=== PATIENT | female | born 1955 | race Caucasian/White ===

== ENCOUNTER → 2021-11-07 12:11 | Outpatient (CLI) | payer MEDICARE, SELFPAY ==
[2021-11-07 19:15] LABS: Add Manual Diff / Slide Review NO; Basophils Absolute Auto 0 /uL (0-100); Basophils Percent Auto 0.8 % (0-2); Eosinophils Absolute Auto 200 /uL (0-450); Eosinophils Percent Auto 4.2 % (2-4); Hematocrit 37.3 % (36-46); Hemoglobin 13.1 g/dL (12.0-16.0); Lymphocytes Absolute Auto 1500 /uL (1100-4500); Lymphocytes Percent Auto 41.1 % (25-40); Mean Corpuscular Hemoglobin 30.5 PG (26-34); Mean Corpuscular Volume 87.2 fL (80-100); Monocytes Absolute Auto 300 /uL (0-900); Monocytes Percent Auto 7.5 % (3-14); Neutrophils Absolute Auto 1700 /uL (1500-7000); Neutrophils Percent Auto 46.4 % (50-75); Platelet Count 210 X10^3/uL (150-400); Red Blood Cell Count 4.28 X10^6/uL (4.0-5.2); White Blood Cell Count 3.7 X10^3/uL (4.5-11.0)
[2021-11-07 19:25] LABS: Alanine Aminotransferase 29 IU/L (<35); Albumin 3.8 g/dL (3.5-5.0); Albumin Globulin Ratio 1.2 (1.0-2.8); Alkaline Phosphatase 61 U/L (38-126); Aspartate Aminotransferase 28 IU/L (14-36); Bilirubin Total 0.6 mg/dL (0.2-1.3); Blood Urea Nitrogen 12 mg/dL (7-17); Calcium 8.9 mg/dL (8.4-10.2); Carbon Dioxide 28 mmol/L (22-32); Chloride 106 mmol/L (98-107); Estimated Glomerular Filt Rate > 60 mL/min (>60); Globulin 3.2 g/dL (1.7-4.1); Glucose 107 mg/dL (80-110); HEMOLYSIS < 15 (0-50); Potassium 4.4 mmol/L (3.4-5.1); Sodium 140 mmol/L (137-145)
[2021-11-07 19:26] LABS: Cholesterol 200 mg/dL (140-199); HDL Cholesterol 65 mg/dL (40-60); LDL Cholesterol Calculated 111 mg/dL (<100); Triglycerides 122 mg/dL (35-150)
[2021-11-07 19:51] LABS: TSH w/ Reflex to FT4 2.39 uIU/mL (0.47-4.68)
[2021-11-07 20:13] LABS: Hep C Virus Ab w/Reflex Quant NEGATIVE s/c (NEGATIVE)
== END ==
PROVIDERS: PCP Physician Assistant; Visit Provider Physician Assistant
DX: R03.0 Elevated blood-pressure reading, without diagnosis of hypertension (principal); Z13.220 Encounter for screening for lipoid disorders; Z11.59 Encounter for screening for other viral diseases
CPT/HCPCS: 80053; 80061; 84443; 85025; 86803

== ENCOUNTER → 2022-08-22 | Outpatient (CLI) | payer MEDICARE, MEDICAID, SELFPAY | PROVIDERS: PCP Family Medicine; Visit Provider Nurse Practitioner Adult Health ==

== ENCOUNTER → 2022-09-05 09:14 | Outpatient (CLI) | payer MEDICARE, MEDICAID, SELFPAY | PROVIDERS: PCP Family Medicine; Visit Provider Family Medicine | DX: M54.9 Dorsalgia, unspecified (principal); R39.89 Other symptoms and signs involving the genitourinary system | CPT/HCPCS: 87086 ==

== ENCOUNTER → 2023-01-15 09:02 | Outpatient (CLI) | payer MEDICARE, SELFPAY ==
[2023-01-15 19:45] LABS: Alanine Aminotransferase 37 IU/L (<35); Albumin 4.1 g/dL (3.5-5.0); Albumin Globulin Ratio 1.1 (1.0-2.8); Alkaline Phosphatase 68 U/L (38-126); Aspartate Aminotransferase 34 IU/L (14-36); BUN Creatinine Ratio 20.3 (6-22); Bilirubin Total 0.6 mg/dL (0.2-1.3); Blood Urea Nitrogen 14 mg/dL (7-17); Calcium 9.5 mg/dL (8.4-10.2); Carbon Dioxide 30 mmol/L (22-32); Chloride 104 mmol/L (98-107); Cholesterol 246 mg/dL (140-199); Estimated Glomerular Filt Rate > 60 mL/min (>60); Globulin 3.8 g/dL (1.7-4.1); Glucose 97 mg/dL (80-110); HDL Cholesterol 76 mg/dL (40-60); HEMOLYSIS < 15 (0-50); LDL Cholesterol Calculated 142 mg/dL (<100); Potassium 4.4 mmol/L (3.4-5.1); Sodium 139 mmol/L (137-145); Total Protein 7.9 g/dL (6.3-8.2); Triglycerides 139 mg/dL (35-150)
[2023-01-15 19:56] LABS: Hemoglobin 14.6 g/dL (12.0-16.0); Mean Corpuscular HGB Conc 34.7 % (30-36); Mean Corpuscular Hemoglobin 30.8 PG (26-34); Mean Corpuscular Volume 88.8 fL (80-100); Platelet Count 243 X10^3/uL (150-400); Red Blood Cell Count 4.73 X10^6/uL (4.0-5.2); Red Cell Distribution Width 13.1 % (11.6-14.8); White Blood Cell Count 5.2 X10^3/uL (4.5-11.0)
[2023-01-15 20:15] LABS: TSH w/ Reflex to FT4 2.72 uIU/mL (0.47-4.68)
[2023-01-15 20:25] LABS: Add Manual Diff / Slide Review YES
[2023-01-15 20:37] LABS: Neutrophils Absolute Manual 2132 /uL (3000-5900); RBC Morphology Normal Morphology; Total Cells Counted 100
== END ==
PROVIDERS: PCP Family Medicine; Visit Provider Family Medicine
DX: R03.0 Elevated blood-pressure reading, without diagnosis of hypertension (principal); E66.9 Obesity, unspecified; I10 Essential (primary) hypertension
CPT/HCPCS: 80053; 80061; 84443; 85007; 85025

== ENCOUNTER → 2023-05-02 10:48 | Outpatient (CLI) | payer MEDICARE, SELFPAY ==
[2023-05-02 19:32] LABS: Alanine Aminotransferase 31 IU/L (<35); Alkaline Phosphatase 63 U/L (38-126); Aspartate Aminotransferase 29 IU/L (14-36); BUN Creatinine Ratio 15.3 (6-22); Bilirubin Total 0.6 mg/dL (0.2-1.3); Blood Urea Nitrogen 9 mg/dL (7-17); Calcium 9.6 mg/dL (8.4-10.2); Carbon Dioxide 29 mmol/L (22-32); Chloride 103 mmol/L (98-107); Estimated Glomerular Filt Rate > 60 mL/min (>60); Glucose 94 mg/dL (80-110); HEMOLYSIS < 15 (0-50); Potassium 4.3 mmol/L (3.4-5.1); Sodium 138 mmol/L (137-145); Total Protein 7.3 g/dL (6.3-8.2)
[2023-05-02 20:31] LABS: Albumin 3.9 g/dL (3.5-5.0); Albumin Globulin Ratio 1.1 (1.0-2.8); Globulin 3.4 g/dL (1.7-4.1)
[2023-05-04 08:44] LABS: HBsAg Screen Negative (Negative); Hepatitis A Antibody IgM Negative (Negative); Hepatitis B Core Antibody IgM Negative (Negative); Hepatitis C Antibody Non Reactive (Non Reactive)
== END ==
PROVIDERS: PCP Family Medicine; Visit Provider Family Medicine
DX: R74.01 Elevation of levels of liver transaminase levels (principal); R79.89 Other specified abnormal findings of blood chemistry
CPT/HCPCS: 80053; 80074

== ENCOUNTER 2023-05-21 14:07 | Inpatient (IN) | payer MEDICARE, SELFPAY ==
[2023-05-21 14:14] VITALS: BP 208/84; PULSE 87; RESP 16; TEMP 35.8; O2SAT 100; BMI 37.4
--- NOTE | 2023-05-21 14:29 | DI.US.S_ITS ---
PROCEDURE: US ABDOMEN COMPLETE INDICATIONS: generalized abd pain TECHNIQUE: Real-time scanning was performed of the abdominal and retroperitoneal organs, with image documentation. COMPARISON: None. FINDINGS: Liver: Liver is normal in size and homogeneous in echotexture. Gallbladder: Nondilated. Multiple stones. Nonmobile gallstone at the neck measuring at 0.9 cm. Calcifications at the gallbladder wall. Gallbladder wall thickening measuring 8 mm. No pericholecystic fluid. Negative sonographic Blancas's sign. Biliary ducts: Intrahepatic bile ducts are non-dilated. Extrahepatic bile duct caliber measures 6 mm. Normal is 6-7 mm or less in diameter, or 10 mm or less post-cholecystectomy. Pancreas: Visualized portions of the pancreas are sonographically normal. Spleen: Measures 13.6 cm in length. Kidneys: Kidneys are normal in size and echotexture. Right kidney measures 11.6 cm long; left kidney measures 10 cm long. No hydronephrosis or nephrolithiasis. No solid masses. Aorta: Visualized aorta is normal in caliber at less than 3 cm. Iliacs: Proximal common iliac arteries are normal in caliber at less than 2.5 cm. IVC: Intrahepatic inferior vena cava is patent. Miscellaneous: No free abdominal fluid. IMPRESSION: 1. Gallbladder wall thickening. Multiple gallstones. Findings could be seen in cholecystitis. Recommend clinical correlation. HIDA scan may be helpful for further evaluation. 2. Spleen is mildly enlarged. 3. No hydronephrosis. Dictated by: Antelmo Ontiveros M.D. on 05/21/2023 at 17:00 Approved by: Antelmo Ontiveros M.D. on 05/21/2023 at 17:06
--- NOTE | 2023-05-21 14:34 | ED_ITS ---
HPI - Abdominal Pain General Chief Complaint: Abdominal Pain Stated Complaint: per pt sent by pcplj Time Seen by Provider: 05/21/23 14:33 Source: patient Mode of arrival: Family Vehicle Limitations: no limitations History of Present Illness HPI narrative: 68-year-old reports no daily medications no prior surgeries patient states earlier in the day she was waiting for the [place] they had [employer] fast food and about an hour afterwards had generalized abdominal pain all over. She was seen by her primary care who states she would a lot of right upper quadrant pain that is and heard for evaluation for cholelithiasis versus cystitis. Patient states pain is actually resolving at this point she feels much better. She describes it as all over. Patient states no fevers or chills. No chest pain or shortness of breath. No nausea or vomiting. No diarrhea constipation, no other urinary symptoms. Patient states she has not had these issues in the past. She did feel like she was having some reflux. Patient states occasional tobacco, occasional alcohol but not regularly, marijuana but no other recreational drugs. Lives on [facility]. Related Data Previous Rx's Medication Instructions Recorded betamethasone, augmented 0.05 % 1 applic topical BID #50 grams 11/14/22 topical gel estradiol 0.01% (0.1 mg/gram) See Rx Instructions vaginal QWEEK 01/30/23 vaginal cream (Estrace) #42.5 grams Allergies Allergy/AdvReac Type Severity Reaction Status Date / Time No Known Drug Allergies Allergy Verified 05/21/23 14:23 Review of Systems Review of Systems ROS Unobtainable: All systems reviewed & are unremarkable except as noted in HPI and below Patient History Medical History Lichen sclerosus et atrophicus Vulvovaginal disease Vulvar atrophy Screening for malignant neoplasm of cervix Closed displaced fracture of styloid process of right radius with delayed healing Elevated blood pressure reading without diagnosis of hypertension Social History Smoking Status: Current some day smoker Smoking Status: Current some day smoker tobacco type: cigarettes Substance Use Type: marijuana Exam Narrative Exam Narrative: GENERAL: Alert and oriented x three, obese female in mild distress. HEENT: Head normocephalic, atraumatic, EOMI, pupils reactive, face symmetric, moist mucous membranes NECK: Supple, full range of motion CARDIOVASCULAR: Regular rate and rhythm without murmurs, rubs or gallops. RESPIRATORY: Breath sounds equal bilaterally, no wheezes rales or rhonchi. ABDOMEN: Soft, patient has some mild left upper quadrant tenderness mild right upper but left greater than right. Nondistended. Normoactive bowel sounds all 4 quadrants. No guarding or rebound, rigidity, no mass : No CVA tenderness EXTREMITIES: Normal range of motion, no clubbing or edema. Neurovascularly intact NEUROLOGICAL: Cranial nerves II through XII grossly intact. Moving all extremities SKIN: Warm, dry, no petechiae, no rashes or lesions. Initial Vital Signs Initial Vital Signs: Vital Signs Temperature 96.5 F L 05/21/23 14:14 Pulse Rate 87 05/21/23 14:14 Respiratory Rate 16 05/21/23 14:14 Blood Pressure 208/84 H 05/21/23 14:14 Pulse Oximetry 100 05/21/23 14:14 Oxygen Delivery Method Room Air 05/21/23 14:14 Course Orders Ordered: ED Orders 05/21/23 14:29 US abdomen complete Stat 05/21/23 14:46 Complete Blood Count AUTO DIFF Stat Comprehensive Metabolic Panel Stat Lipase Stat 05/21/23 16:33 MRCP [MR abdomen wo/w con] Stat 05/21/23 19:15 UA dip and micro [Urinalysis and Microscopic] Stat Ondansetron HCl (Ondansetron 4 Mg Odt) 4 mg PO NOW PRN PRN Reason: Nausea And Vomiting Ondansetron HCl (Ondansetron 4 Mg/2 Ml Inj) 4 mg IV NOW PRN PRN Reason: Nausea And Vomiting Discontinued Medications Piperacillin Sod/Tazobactam (Sod 4.5 gm/ Sodium Chloride) 100 mls @ 200 mls/hr IV NOW ONE Stop: 05/21/23 16:34 Last Infusion: 05/21/23 17:41 Dose: Infused Documented By: Admin: 05/21/23 16:53 Dose: 200 mls/hr Documented By: AMV Pantoprazole Sodium (Pantoprazole 40 Mg Vial) 40 mg IV NOW ONE Stop: 05/21/23 14:30 Last Admin: 05/21/23 15:54 Dose: 40 mg Documented By: RL Vital Signs Vital signs: Vital Signs - 8 hr 05/21/23 14:14 05/21/23 16:40 Temperature 96.5 F L Pulse Rate 87 79 Respiratory Rate 16 16 Blood Pressure 208/84 H 126/81 Pulse Oximetry 100 98 Oxygen Delivery Method Room Air Room Air MDM - Abdominal Pain Lab Data 05/21/23 14:46 05/21/23 14:46 Labs: Lab Results 05/21/23 Range/Units 14:46 WBC 7.5 (4.5-11.0) X10^3/uL RBC 4.55 (4.0-5.2) X10^6/uL Hgb 13.6 (12.0-16.0) g/dL Hct 39.8 (36-46) % MCV 87.4 (80-100) fL MCH 30.0 (26-34) PG MCHC 34.3 (30-36) % RDW 13.5 (11.6-14.8) % Plt Count 235 (150-400) X10^3/uL Neut % (Auto) 72.8 (50-75) % Lymph % (Auto) 17.2 L (25-40) % [place] % (Auto) 8.0 (3-14) % Eos % (Auto) 1.5 L (2-4) % Baso % (Auto) 0.5 (0-2) % Neut # (Auto) 5400 (2400-0104) /uL Lymph # (Auto) 1300 (0552-3257) /uL [place] # (Auto) 600 (0-900) /uL Eos # (Auto) 100 (0-450) /uL Baso # (Auto) 0 (0-100) /uL Sodium 135 L (137-145) mmol/L Potassium 4.2 (3.4-5.1) mmol/L Chloride 102 (98-107) mmol/L Carbon Dioxide 26 (22-32) mmol/L BUN 8 (7-17) mg/dL Creatinine 0.55 (0.52-1.04) mg/dL Estimated GFR > 60 (>60) mL/min BUN/Creatinine Ratio 14.5 (6-22) Glucose 104 (80-110) mg/dL Calcium 10.3 H (8.4-10.2) mg/dL Total Bilirubin 2.0 H (0.2-1.3) mg/dL AST 238 H (14-36) IU/L ALT 670 H (<35) IU/L Alkaline Phosphatase 311 H (38-126) U/L Total Protein 8.4 H (6.3-8.2) g/dL Albumin 4.2 (3.5-5.0) g/dL Globulin 4.2 H (1.7-4.1) g/dL Albumin/Globulin Ratio 1.0 (1.0-2.8) Lipase 1515 H (23-300) U/L Imaging Data MCRP: Radiologist's Impression: [address] [address] Magnetic Resonance Report Signed Patient: Batsheva Rebolledo MR#: [id number] : 1955 Acct:[id number] Age/Sex: 68 / F Date of Service: 05/21/23 Loc: ED Accession Number: [id number] Procedure: MR abdomen wo/w con Ordering Provider: Anna Meadows D.O. PROCEDURE: MR AB PANCREATIC/MRCP PROTOCOL INDICATIONS: r/o choledocolithiasis. Right upper quadrant pain following fast food ingestion, which has not resolved. TECHNIQUE: Coronal HASTE through the abdomen, axial 2-D FLASH in- and [id number], and breath-hold T2 FSE with fat saturation through the biliary system and pancreas. Oblique coronal and axial thin-slice HASTE, radial thick-slab HASTE centered on the extrahepatic bile ducts. Intravenous secretin: Not requested. COMPARISON: None. FINDINGS: Image quality: Excellent. Liver: No solid mass. Gallbladder and biliary tree: Gallbladder is contracted. Gallstones are present. Focal adenomyomatosis at the gallbladder fundus. No hydrops. Trace pericholecystic edema. Spleen: Normal size. Pancreas: No ductal dilation. Adrenal glands: 2.2 cm right adrenal nodule with signal dropout on the out of phase sequence, consistent with a benign adrenal adenoma. Kidneys: No hydronephrosis. No solid mass. No complex renal cysts which requires follow-up. Nodes and vessels: No retroperitoneal or mesenteric adenopathy by size criteria. Aorta and inferior vena cava are normal in size. Bowel and peritoneum: Unenhanced bowel loops are normal in caliber. No free fluid. Lung bases: No basal pleural effusions. Heart size is normal. Bones and soft tissues: No ventral hernias. Bone marrow is of normal overall signal. IMPRESSION: Cholelithiasis. Gallbladder is contracted, but trace pericholecystic edema is present. In the presence of right upper quadrant pain, findings are concerning for acute cholecystitis. No evidence of choledocholithiasis. Benign right adrenal. Dictated by: Brandt Dixon M.D. on 05/21/2023 at 17:54 Approved by: Brandt Dixon M.D. on 05/21/2023 at 17:57 [facility] Narrative Medical decision making narrative: 68-year-old female with complaint of abdominal pain that started approximately an hour after ingesting fast food it has since started to improve and resolve. Patient is hypertensive but otherwise fairly appropriate vitals. She has a benign abdominal exam. Plan for labs, urine, abdominal ultrasound. Awaiting patient's ultrasound report prelim was that the wall was thickened at 7 mm stone in the fundus with adenomyomatosis but has not been read at almost 2 hours. Patient's bilirubin is elevated at 2 AST ALT alk phos are all elevated and lipase is [address]. Discuss[address] with Dr[address] Hassan on-call for General surgery he would like an MRCP as patient might also have a choledocholithiasis on top. Spoke with Mo and admit to general surgery. Zosyn, NPO after midnight light diet prior to. Discharge Plan Departure Patient Disposition: Home Clinical Impression: Acute cholecystitis Prescriptions: No Action betamethasone, augmented 0.05 % gel 1 applic topical BID Qty: 50 2RF Rx Instructions: topical thin pea sized about to affected tissues. estradiol [Estrace] 0.01 % (0.1 mg/gram) cream See Rx Instructions vaginal QWEEK Qty: 42.5 5RF Rx Instructions: 0.5gm topically to vulvar tissues 2 x weekly vaginally every week; Referrals: Margot Aguilera MD [Primary Care Provider] - Stand Alone Forms: Patient Portal/API
[2023-05-21 14:56] LABS: Add Manual Diff / Slide Review NO; Basophils Absolute Auto 0 /uL (0-100); Basophils Percent Auto 0.5 % (0-2); Eosinophils Absolute Auto 100 /uL (0-450); Eosinophils Percent Auto 1.5 % (2-4); Hematocrit 39.8 % (36-46); Hemoglobin 13.6 g/dL (12.0-16.0); Lymphocytes Absolute Auto 1300 /uL (1100-4500); Lymphocytes Percent Auto 17.2 % (25-40); Mean Corpuscular HGB Conc 34.3 % (30-36); Mean Corpuscular Volume 87.4 fL (80-100); Monocytes Absolute Auto 600 /uL (0-900); Neutrophils Absolute Auto 5400 /uL (1500-7000); Neutrophils Percent Auto 72.8 % (50-75); Platelet Count 235 X10^3/uL (150-400); Red Blood Cell Count 4.55 X10^6/uL (4.0-5.2); Red Cell Distribution Width 13.5 % (11.6-14.8); White Blood Cell Count 7.5 X10^3/uL (4.5-11.0)
[2023-05-21 15:12] LABS: Alanine Aminotransferase 670 IU/L (<35); Albumin 4.2 g/dL (3.5-5.0); Alkaline Phosphatase 311 U/L (38-126); Aspartate Aminotransferase 238 IU/L (14-36); BUN Creatinine Ratio 14.5 (6-22); Blood Urea Nitrogen 8 mg/dL (7-17); Calcium 10.3 mg/dL (8.4-10.2); Carbon Dioxide 26 mmol/L (22-32); Chloride 102 mmol/L (98-107); Estimated Glomerular Filt Rate > 60 mL/min (>60); Globulin 4.2 g/dL (1.7-4.1); Glucose 104 mg/dL (80-110); HEMOLYSIS < 15 (0-50); Lipase 1515 U/L (23-300); Potassium 4.2 mmol/L (3.4-5.1); Sodium 135 mmol/L (137-145); Total Protein 8.4 g/dL (6.3-8.2)
[2023-05-21] MEDS: PANTOPRAZOLE 40 MG VIAL IV (15:54)
--- NOTE | 2023-05-21 16:33 | DI.MRI.S_ITS ---
PROCEDURE: MR AB PANCREATIC/MRCP PROTOCOL INDICATIONS: r/o choledocolithiasis. Right upper quadrant pain following fast food ingestion, which has not resolved. TECHNIQUE: Coronal HASTE through the abdomen, axial 2-D FLASH in- and [id number], and breath-hold T2 FSE with fat saturation through the biliary system and pancreas. Oblique coronal and axial thin-slice HASTE, radial thick-slab HASTE centered on the extrahepatic bile ducts. Intravenous secretin: Not requested. COMPARISON: None. FINDINGS: Image quality: Excellent. Liver: No solid mass. Gallbladder and biliary tree: Gallbladder is contracted. Gallstones are present. Focal adenomyomatosis at the gallbladder fundus. No hydrops. Trace pericholecystic edema. Spleen: Normal size. Pancreas: No ductal dilation. Adrenal glands: 2.2 cm right adrenal nodule with signal dropout on the out of phase sequence, consistent with a benign adrenal adenoma. Kidneys: No hydronephrosis. No solid mass. No complex renal cysts which requires follow-up. Nodes and vessels: No retroperitoneal or mesenteric adenopathy by size criteria. Aorta and inferior vena cava are normal in size. Bowel and peritoneum: Unenhanced bowel loops are normal in caliber. No free fluid. Lung bases: No basal pleural effusions. Heart size is normal. Bones and soft tissues: No ventral hernias. Bone marrow is of normal overall signal. IMPRESSION: Cholelithiasis. Gallbladder is contracted, but trace pericholecystic edema is present. In the presence of right upper quadrant pain, findings are concerning for acute cholecystitis. No evidence of choledocholithiasis. Benign right adrenal. Dictated by: Brandt Dixon M.D. on 05/21/2023 at 17:54 Approved by: Brandt Dixon M.D. on 05/21/2023 at 17:57
[2023-05-21 16:40] VITALS: BP 126/81; PULSE 79; RESP 16; O2SAT 98
[2023-05-21] MEDS: PIPERACILLIN/TAZO 4.5 GM in SODIUM CHLORIDE 0.9% 100 ML IV (16:53)
[2023-05-21 19:20] VITALS: BP 128/61; PULSE 80; RESP 16; O2SAT 97
[2023-05-21 19:30] LABS: Bilirubin Urine UA 1+ (NEGATIVE); Color Urine UA YELLOW; Glucose Urine UA NEGATIVE (Negative); Ketones Urine UA TRACE (NEGATIVE); Leukocyte Esterase Urine UA 3+ (NEGATIVE); Nitrite Urine UA NEGATIVE (Negative); Occult Blood Urine UA TRACE-INTACT (Negative); Protein Urine UA 1+ (Negative)
[2023-05-21 19:42] LABS: Appearance Urine UA Slightly Cloudy; pH Urine UA 5.5 (4.5-8.0)
[2023-05-21 20:11] LABS: RBC Urine 0-1/HPF (0-5/HPF); WBC Urine 5-10/HPF (0-5/HPF)
[2023-05-21 20:12] LABS: Amorphous Sediment Urine 1+; Bacteria Urine Moderate (10-30); Culture Indicated Urine Specimen Cultured; Squamous Epithelial Cell Urine 1-5 /HPF (0-5/HPF)
[2023-05-21 20:54] VITALS: BMI 37.4
[2023-05-21 21:28] VITALS: BP 145/79; PULSE 77; RESP 16; TEMP 36.1; O2SAT 97
[2023-05-21] MEDS: LACTATED RINGERS 1,000 ML 75 ML IV (22:34)
--- NOTE | 2023-05-22 02:31 | PC.NURSE ---
sped teacher: Patient ambulated from the ED onto the floor, arrived @ 2100. Patient is AxOx4, VSS (slightly hypertensive), O2 97% on RA. Denies pain, nausea, SOB, dizziness. States that pain has significantly improved tonight. Ate some food in the ED, tolerated well. Patient is NPO for possible surgery tomorrow, IVF infusing as ordered. Patient oriented to room & educated on using call light before getting OOB.
[2023-05-22 04:49] VITALS: BP 120/66; PULSE 80; RESP 16; TEMP 37; O2SAT 96
[2023-05-22 08:00] VITALS: BP 141/66; PULSE 73; RESP 16; TEMP 36.3; O2SAT 97
[2023-05-22 11:00] VITALS: BP 111/54; PULSE 71; RESP 16; TEMP 36.2; O2SAT 98
--- NOTE | 2023-05-22 12:04 | PC.NURSE ---
a&o conversant independent in her room. comfortable. awaiting word on when surgery will be. Spoke with Dr. Hassan. Surgery most likely tomorrow. Updated Pt.
--- NOTE | 2023-05-22 14:07 | P.HP_ITS ---
History of Present Illness History of Present Illness Date Patient Seen: 05/22/23 Time Patient Seen: 14:08 Chief complaint: per pt sent by pcp, lj barajas Narrative: Batsheva Rebolledo is a 68-year-old woman from [facility] who presented to the ER last night complaining of abdominal pain after eating fast food. She was found to have cholelithiasis. She would elevation of her bilirubin, alk phosphatase and transaminases so an MRCP was ordered to rule out a common duct stone. No common duct stone was found. Since coming up stairs her pain has improved and she has been able to eat. [facility] Medical History Lichen sclerosus et atrophicus Vulvovaginal disease Vulvar atrophy Screening for malignant neoplasm of cervix Closed displaced fracture of styloid process of right radius with delayed healing Elevated blood pressure reading without diagnosis of hypertension Social History household members: significant other Smoking Status: Current some day smoker alcohol intake: current Meds Home Medications and Allergies Home Medications Medication Instructions Recorded Confirmed Type betamethasone, augmented 0.05 % 1 applic topical BID #50 grams 11/14/22 05/21/23 Rx topical gel estradiol 0.01% (0.1 mg/gram) See Rx Instructions vaginal QWEEK 01/30/23 05/21/23 Rx vaginal cream (Estrace) #42.5 grams Allergies Allergy/AdvReac Type Severity Reaction Status Date / Time No Known Drug Allergies Allergy Verified 05/21/23 14:23 Exam Vital Signs (past 8 hours): - 05/22/23 08:00 05/22/23 11:00 Temperature 97.3 F L 97.1 F L Pulse Rate 73 71 Respiratory Rate 16 16 Blood Pressure 141/66 H 111/54 L Pulse Oximetry 97 98 Oxygen Flow Rate 0 Oxygen Delivery Method Room Air Oxygen Flow Rate 0 Const General: No acute distress Resp Effort & Inspection: normal respiratory effort Objective Labs 05/21/23 14:46 05/21/23 14:46 Labs: Laboratory Results - last 24 hr 05/21/23 05/21/23 14:07 14:46 WBC 7.5 RBC 4.55 Hgb 13.6 Hct 39.8 MCV 87.4 MCH 30.0 MCHC 34.3 RDW 13.5 Plt Count 235 Neut % (Auto) 72.8 Lymph % (Auto) 17.2 L [place] % (Auto) 8.0 Eos % (Auto) 1.5 L Baso % (Auto) 0.5 Neut # (Auto) 5400 Lymph # (Auto) 1300 [place] # (Auto) 600 Eos # (Auto) 100 Baso # (Auto) 0 Sodium 135 L Potassium 4.2 Chloride 102 Carbon Dioxide 26 BUN 8 Creatinine 0.55 Estimated GFR > 60 BUN/Creatinine Ratio 14.5 Glucose 104 Calcium 10.3 H Total Bilirubin 2.0 H AST 238 H ALT 670 H Alkaline Phosphatase 311 H Total Protein 8.4 H Albumin 4.2 Globulin 4.2 H Albumin/Globulin Ratio 1.0 Lipase 1515 H Urine Color Yellow Urine Appearance Slightly cloudy Urine pH 5.5 Ur Specific [place] 1.010 Urine Protein 1+ H Urine Glucose (UA) Negative Urine Ketones Trace H Urine Occult Blood Trace-intact Urine Nitrate Negative Urine Bilirubin 1+ H Ur Bilirubin Confirm Cancelled Urine Urobilinogen 1.0 Ur Leukocyte Esterase 3+ H Urine RBC 0-1/hpf Urine WBC 5-10/hpf H Ur Squamous Epith Cells 1-5 /hpf Amorphous Sediment 1+ Urine Bacteria Moderate (10-30) H Ur Culture Indicated? Specimen cultured Assessment & Plan Assessment and plan (1) Acute cholecystitis: Status: Acute Plan Acute cholecystitis versus biliary colic with no evidence of choledocholithiasis. Since there was no availability in the operating room today she can a diet tonight then the NPO after midnight. She will have a laparoscopic cholecystectomy by Dr. Rabago tomorrow. Quality VTE Deep Vein Thrombosis/Pulmonary Embolism Present on Admission: No
--- NOTE | 2023-05-22 14:26 | CM.DANOTE ---
Reviewed EMR and team rounds for pt's medical status and initial anticipated d/c needs. Met with pt at bedside to introduce self and role. Pt was found to be sitting upright in bed getting ready for lunch. She shared that she resides with her SO, works for herself, and has a lot of support through friends and neighbors on [facility]. Payor: Medicare Attending: Dr. Hassan Pt is a 68 year-old F who presented to the ED on 05/21/23 with right upper quadrant pain about an hour after eating fast food. She soon also felt pain all over, and was sent by her PCP to the ED for further evaluation. ED was evaluating for possible cholelithiasis vs. cystitis. After arriving to the ED, pt stated that her pain was beginning to reside. Pt admitted, plan is for NPO after midnight tonight followed by a laparoscopic cholecystectomy by Dr. Rabago tomorrow. No identified home d/c needs are anticipated. Pt's SO will plan to drive her home once medically cleared for d/c. DCP will follow and assist with any further needs/resources. Discharge Planning/Care Management CM Discharge Assessment Start: 05/22/23 14:22 Freq: Status: Active Protocol: Document 05/22/23 14:23 DPL (Rec: 05/22/23 14:26 DPL [id number]) Discharge Planning Assessment Assigned Sleeve Presser Operator DIANA Gallegos Advance Directives? No History Provided By Patient,Medical Record Has Patient been admitted in last 30 No days? Prior Living Arrangements House Household Members significant other Type of transporation used prior to Drives own vehicle admit Independent with ADL's Yes Is patient alert and oriented? Yes Comment N/A Caregiver for Another No Comment N/A Comment No identified home d/c needs identified at this time. Barriers to Discharge No Discharge Plan Home Transportation Arrangement Significant Other Referrals Initiated None needed Additional Comment Pending any additional needs that are identified prior to d /c. If patient plan is home with home health No : Has signed face to face form been completed? If patient plan is SNF: Has PASSR been No completed? Whiteboard Updated in Patient Room with Yes name and ext. # of Sleeve Presser Operator Review Status In Process Please Provide Date Initial DC 05/22/23 Assessment Was Performed
[2023-05-22 17:00] VITALS: BP 140/85; PULSE 73; RESP 16; TEMP 36.6; O2SAT 97
[2023-05-22 20:42] VITALS: BP 126/62; PULSE 76; RESP 18; TEMP 36.7; O2SAT 97
[2023-05-22] MEDS: LACTATED RINGERS 1,000 ML 75 ML IV (21:19)
[2023-05-23] VITALS (9 sets, daily range): BP systolic 110–161; BP diastolic 54–73; PULSE 55–73; RESP 12–19; TEMP 36.5–36.9; O2SAT 93–100; BMI 37.4
--- NOTE | 2023-05-23 | PATH_ITS ---
[facility] Accession Number: [id number] No. of containers..01 Tissue . 01 Material submitted: . gallbladder - GALLBLADDER . 01 Diagnosis: Gallbladder, Cholecystectomy: Chronic cholecystitis, cholesterolosis, and cholelithiasis. Negative for dysplasia and neoplasia. MRV 06/04/2023 1543 Local . 01 Electronically signed: . Savi Castañeda MD, Pathologist NPI- [id number] . 01 Gross description: . The specimen is received in formalin labeled with the patient's name, , and gallbladder, consists of a yellow to ellsworth intact gallbladder measuring 7.8 x 3.5 x 2.7 cm. The cystic duct margin is inked blue, and no pericystic lymph node is identified. The lumen is filled with multiple green bosselated calculi measuring up to 1.5 cm in greatest dimension, not grossly obstructing the cyst duct, and admixed with dark green sludgy bile. The mucosa is green and velvety with multiple yellow pinpoint areas of discoloration, and no polyps or lesions identified. The jennings average 0.6 cm thick with a cystic structure at the fundus measuring 0.6 cm in greatest dimension filled with small yellow calculi. Slat Basket Maker sections to include the cystic duct margin and full thickness sections with cystic area are submitted in cassette A1. ([id number]) /MRV 05/24/2023 1719 Local . 01 Pathologist provided ICD-10: K81.1 . 01 CPT . 980145 Specimen Comment: A courtesy copy of this report has been sent to [phone] Performed at: 01 [facility] [address] [place] [address] [facility], [place], [place] [id number] MD Juanito Wang MD Phone: [phone]
[2023-05-23 04:56] LABS: Add Manual Diff / Slide Review NO; Basophils Absolute Auto 0 /uL (0-100); Basophils Percent Auto 0.6 % (0-2); Eosinophils Absolute Auto 200 /uL (0-450); Eosinophils Percent Auto 4.6 % (2-4); Hematocrit 33.7 % (36-46); Hemoglobin 11.6 g/dL (12.0-16.0); Lymphocytes Absolute Auto 1300 /uL (1100-4500); Lymphocytes Percent Auto 25.6 % (25-40); Mean Corpuscular HGB Conc 34.4 % (30-36); Mean Corpuscular Hemoglobin 30.5 PG (26-34); Mean Corpuscular Volume 88.8 fL (80-100); Monocytes Absolute Auto 600 /uL (0-900); Monocytes Percent Auto 10.7 % (3-14); Neutrophils Absolute Auto 3000 /uL (1500-7000); Neutrophils Percent Auto 58.5 % (50-75); Platelet Count 189 X10^3/uL (150-400); Red Cell Distribution Width 13.3 % (11.6-14.8); White Blood Cell Count 5.2 X10^3/uL (4.5-11.0)
[2023-05-23 05:00] LABS: Alanine Aminotransferase 348 IU/L (<35); Albumin 3.5 g/dL (3.5-5.0); Alkaline Phosphatase 184 U/L (38-126); Aspartate Aminotransferase 81 IU/L (14-36); BUN Creatinine Ratio 19.2 (6-22); Bilirubin Total 1.4 mg/dL (0.2-1.3); Blood Urea Nitrogen 10 mg/dL (7-17); Calcium 9.3 mg/dL (8.4-10.2); Carbon Dioxide 27 mmol/L (22-32); Chloride 105 mmol/L (98-107); Estimated Glomerular Filt Rate > 60 mL/min (>60); Globulin 3.4 g/dL (1.7-4.1); Glucose 98 mg/dL (80-110); HEMOLYSIS < 15 (0-50); Potassium 4.1 mmol/L (3.4-5.1); Sodium 136 mmol/L (137-145); Total Protein 6.9 g/dL (6.3-8.2)
[2023-05-23] MEDS: LACTATED RINGERS 1,000 ML 75 ML IV (09:10)
[2023-05-23] MEDS: LACTATED RINGERS 1,000 ML 100 ML IV (11:33)
--- NOTE | 2023-05-23 11:47 | PM.PREOP ---
Pre-operative Note Interval Note History & Physical reviewed/Exam performed by Physician: Yes Changes to H&P: No H&P completed within 30 days and has changed as indicated here:: 68-year-old woman with acute cholecystitis. Recommend proceeding with laparoscopic cholecystectomy. Overview of the operation discussed. Operative risks including but not limited to hemorrhage, infection, damage to surrounding structures, bile leak, conversion open were discussed. Questions have been answered. She provides her written and verbal consent to proceed.
[2023-05-23] MEDS: PIPERACILLIN/TAZO 3.375 GM in SODIUM CHLORIDE 0.9% 100 ML IV (12:04)
--- NOTE | 2023-05-23 12:14 | CM.DPNOTE ---
Addendum entered by DIANA Peña 05/23/23 15:11: ADD: Discharge order in place. Priority board pass completed for start date of tomorrow 05.24.23 per patient's request. Route: [place] to [facility]. Patient plans on staying in a hotel this evening. Copy of the emailed priority board confirmation provided to patient. JW Original Note: DCP Note Patient scheduled for lap samantha today at 1215, likely discharge home after. No barriers identified at this time to safe return home w/friends and family to assist. CM team will follow clinical course closely in case any discharge needs arise. ERICA
--- NOTE | 2023-05-23 12:22 | SUR.OPER ---
Supine on padded OR bed, head on pillow, safety belt at thigh, left arm padded and tucked at side. Right arm secured on padded arm board <90 degrees abduction. Legs uncrossed. Padded footboard in place. Tape over blanket to secure lower legs.
[2023-05-23] MEDS: BUPIVACAINE 0.25% (PF) VIAL 30 ML INJ (12:31)
[2023-05-23] MEDS: HYDROCODONE/ACET 5/325 TABLET 2 TAB PO (13:20)
--- NOTE | 2023-05-23 13:24 | PM.OP.1 ---
Operative Date/Time/Diagnoses Date of procedure: 05/23/23 Time of procedure: 13:24 Pre-op diagnosis: Acute cholecystitis Post-op diagnosis: same Procedure & Clinicians Procedure: Laparoscopic cholecystectomy Same procedure as scheduled: Yes Indications: 68-year-old woman with symptoms and radiographic findings consistent with acute cholecystitis. Following discussion of risks benefits and alternatives she elects to proceed with cholecystectomy Surgeon: Miles Rabago Anesthesia Type: General Operative Notes Findings: Acute cholecystitis. Critical view of safety established. Specimen(s): other (Gallbladder) Estimated Blood Loss (mL): 20 Procedure in detail: The patient was placed supine on the table and bilateral lower extremity compression devices were applied. Anesthesia was induced they were intubated with an endotracheal tube and received Zosyn. A time-out was performed. They were prepped and draped in sterile fashion. An infraumbilical incision was made. The fascia was elevated incised and the abdomen was entered atraumatically. A blunt tip 12mm balloon trocar was then inserted, pneumoperitoneum was established and inspection of the abdomen demonstrated no evidence of injury. They were placed head up and right side up and then a 11 mm port was placed high in the epigastrium and two 5mm in the right upper quadrant. The gallbladder was grasped by the fundus and retracted over the liver and retracted laterally by the infundibulum. Gallbladder was acutely inflamed consistent with acute cholecystitis. Using electrocautery the lateral plane between the gallbladder and the liver was opened towards the fundus. The gallbladder was then retracted laterally and the medial plane was developed in the same manner. With the gallbladder mobilized the bottom of the cystic plate was visualized. The hepatocystic triangle was meticulosly skeletonized with blunt dissection of fat and fibrous tissue from both the front and the back. Only two structures were then clearly seen entering the gallbladder the cystic duct and the cystic artery. With the critical view of safety fully established the cystic duct was clipped twice proximally and once distally using the 10 mm Weck hemoclip applied under direct visualization and then sharply divided. The cystic artery was divided in the same fashion. The gallbladder was removed from the liver bed using electro cautery. The liver bed was then inspected for hemostasis and this was achieved. The abdomen was irrigated with sterile saline and inspection was made that showed the clips in good position. The specimen was removed using Endo-Catch. The abdomen was desufflated. The umbilical fascia was closed with 0 Vicryl in a [id number] fashion under direct visualization. Skin incisions were irrigated and closed with 4-0 Monocryl. 30 ml of 0.25% bupivacaine was infiltrated into the subcutaneous tissue of the incisions. The wounds were sealed with Dermabond. Patient emerged from anesthesia was extubated and transferred to recovery in stable condition. The sponge and instrument count at the end of the operation was correct. Complications: none Post-operative Condition: stable Disposition: Acute Care
[2023-05-23] MEDS: HYDROMORPHONE 0.5 MG INJ IV (13:30)
[2023-05-23] MEDS: HYDROMORPHONE 1 MG INJ IV ×2 (13:38→13:43)
[2023-05-23] MEDS: IBUPROFEN 600 MG TABLET PO (16:09)
--- NOTE | 2023-05-23 16:13 | PC.NURSE ---
A&Ox4. 94% RA. ambulated in her room, went to the bathroom and voided, ate her applesauce. pt said she will eat more at home. dc instructions given.
== END 2023-05-23 16:17 | disposition home or self-care (01) | DRG 419 ==
LOC: ED 19:09 → AC 05-22 06:26
PROVIDERS: Surgery; Admitting Provider Surgery; Emergency Provider Emergency Medicine; PCP Family Medicine; Referring Provider Emergency Medicine; Visit Provider Surgery
PROC: 0FT44ZZ Resection of Gallbladder, Percutaneous Endoscopic Approach (ICD-10-PCS; CPT 47562; principal; 2023-05-23 12:15)
DX: K81.0 Acute cholecystitis (principal)
CPT/HCPCS: 36415; 47562; 74183; 76700; 80053; 81001; 83690; 85025; 87086; 93005; 96365; 96375; 99222; 99284; 99285; C9113; J1100; J1170; J2405; J2543; J3010

== ENCOUNTER 2023-09-25 08:34 | Day surgery (SDC) | payer MEDICARE, MEDICAID, SELFPAY ==
--- NOTE | 2023-09-25 | PATH_ITS ---
[facility] Accession Number: [id number] No. of containers..01 Tissue . 01 Material submitted: . rectum - RECTAL POLYP . 01 Diagnosis: RECTAL POLYP: Hyperplastic polyp. STO 09/28/2023 1434 Local . 01 Electronically signed: . Juanito Wang MD, Pathologist NPI- [id number] . 01 Gross description: . RECTAL POLYP: Received in formalin is 1 fragment(s) of ellsworth, soft tissue measuring 0.4 x 0.3 x 0.3 cm submitted entirely in 1 cassette(s) /HARRISON 09/28/2023 1434 Local . 01 Pathologist provided ICD-10: K63.5 . 01 CPT . 190764 Specimen Comment: A courtesy copy of this report has been sent to [phone] Performed at: 01 [facility] [address] [place] [address] [id number] MD Juanito Wang MD Phone: [phone]
[2023-09-25 09:16] VITALS: BP 147/82; PULSE 60; RESP 18; TEMP 37; O2SAT 99
[2023-09-25] MEDS: LACTATED RINGERS 1,000 ML 42 ML IV (09:34)
--- NOTE | 2023-09-25 10:09 | P.HP_ITS ---
History of Present Illness History of Present Illness Date Patient Seen: 09/25/23 Time Patient Seen: 10:09 Chief complaint: Screening Colonoscopy Narrative: [age] year old woman here for screening colonoscopy. Last colonoscopy 10 years ago normal. No family history of intestinal malignancy. No abdominal concerns today. [facility] Medical History Acute cholecystitis Lichen sclerosus et atrophicus Vulvovaginal disease Vulvar atrophy Screening for malignant neoplasm of cervix Closed displaced fracture of styloid process of right radius with delayed healing Elevated blood pressure reading without diagnosis of hypertension Surgical History S/P cholecystectomy Social History household members: significant other Smoking Status: Current some day smoker alcohol intake: current Meds Home Medications and Allergies Home Medications Medication Instructions Recorded Confirmed Type betamethasone, augmented 0.05 % 1 applic topical BID #50 grams 11/14/22 07/27/23 Rx topical gel estradiol 0.01% (0.1 mg/gram) See Rx Instructions vaginal QWEEK 01/30/23 07/27/23 Rx vaginal cream (Estrace) #42.5 grams acetaminophen 325 mg capsule 650 mg (2 x 325 mg) PO QID PRN 05/23/23 07/27/23 Rx (Tylenol) pain #60 caps ibuprofen 200 mg tablet 400 mg (2 x 200 mg) PO Q6H #60 tabs 05/23/23 07/27/23 Rx peg 3350-electrolytes 236 240 ml PO Q10M #4,000 mL 08/02/23 Rx gram-22.74 gram-6.74 gram-5.86 gram solution (Golytely) Allergies Allergy/AdvReac Type Severity Reaction Status Date / Time adhesive tape Allergy Mild bruising Verified 09/25/23 09:15 oxycodone AdvReac Intermediate Dark Verified 09/25/23 09:15 thoughts Exam Vital Signs (past 8 hours): - 09/25/23 09:16 Temperature 98.6 F Pulse Rate 60 Respiratory Rate 18 Blood Pressure 147/82 H Pulse Oximetry 99 Oxygen Delivery Method Room Air Oxygen Delivery Method Room Air Narrative Exam Narrative: General adult woman alert oriented no acute distress Chest nonlabored respiration Extremities warm well perfused Assessment & Plan Assessment & Plan narrative: The patient requires colorectal screening and colonoscopy is recommended. Technical details were discussed. Risks, benefits, alternatives explained. Risks including but not limited to myocardial infarction, aspiration, bleeding, pain, missed lesion, incomplete examination, need for further radiographic studies, colonic perforation, and need for major abdominal surgery were discussed. All questions were answered to their satisfaction, and they are in agreement with this plan.
[2023-09-25 10:37] VITALS: BP 132/56; PULSE 65; RESP 18; TEMP 36.7; O2SAT 100
--- NOTE | 2023-09-25 10:41 | P.OP.COLON_ITS ---
Operative Date/Time/Diagnoses Date of procedure: 09/25/23 Time of procedure: 10:41 Pre-op diagnosis: Colorectal screening Procedure & Clinicians Study performed: Screening colonoscopy Same procedure as scheduled: Yes Indications: Colorectal screening Surgeon: Miles Rabago Procedure Notes Procedure in detail: The history and physical was performed/updated and the patient is ASA class is 2. The procedure was discussed in detail with the patient. Potential risks co mplications including infection, bleeding, missed diagnosis, perforation, need for surgery, and were explained. Their questions were answered and informed consent was obtained. Patient was brought to the procedure room and placed standard monitoring equipment. The patient's vital signs were monitored continuously throughout the entire procedure. Prior to starting time-out was performed. The patient was placed in the left lateral recumbent position. Procedural sedation was administered by anesthesia. Examination began with a thorough inspection of the perianal area there was no evidence of fissures, fistulae, external hemorrhoids or cutaneous malignancy. The colonoscopy scope was then placed into the anal canal and was advanced to the cecum, which was identified by the ileocecal valve, the appendiceal orifice and the confluence of the taenia. The scope was then slowly withdrawn examining colon thoroughly in all directions, irrigating it of any residual stool. The scope was retroflexed within the rectum The patient tolerated the procedure well. They will be discharged once criteria are met. The prep was of fair quality. The withdrawl time was 6 minutes. FINDINGS * Rectal polyp. 3 mm polyp x2 removed with biopsy forceps * Descending colon-mild diverticulosis Specimen(s): other (Rectal polyp x2) Impression: Colonic polyp x2 Post-procedure Recommendations: High fiber diet Plan for aftercare: Follow-up dependent on pathology findings. Disposition: same day surgery
[2023-09-25 10:42] VITALS: BP 128/74; PULSE 62; RESP 19; O2SAT 99
[2023-09-25 10:47] VITALS: BP 116/91; PULSE 59; RESP 19; O2SAT 100
[2023-09-25 10:55] VITALS: BP 159/71; PULSE 56; RESP 15; TEMP 36.7; O2SAT 100
== END 2023-09-25 11:09 | disposition home or self-care (01) ==
PROVIDERS: PCP Family Medicine; Referring Provider Surgery; Visit Provider Surgery
PROC: 0DJD8ZZ Inspection of Lower Intestinal Tract, Via Natural or Artificial Opening Endoscopic (ICD-10-PCS; CPT 45378; principal; 2023-09-25 09:45)
DX: Z12.11 Encounter for screening for malignant neoplasm of colon (principal); K57.30 Diverticulosis of large intestine without perforation or abscess without bleeding; K63.5 Polyp of colon
CPT/HCPCS: 45380; J2704

== ENCOUNTER → 2024-06-03 09:19 | Outpatient (CLI) | payer MEDICARE, SELFPAY ==
[2024-06-03 19:33] LABS: Add Manual Diff / Slide Review NO; Basophils Absolute Auto 0 /uL (0-100); Basophils Percent Auto 0.5 % (0-2); Eosinophils Absolute Auto 200 /uL (0-450); Eosinophils Percent Auto 3.8 % (2-4); Hematocrit 39.8 % (36-46); Hemoglobin 13.4 g/dL (12.0-16.0); Lymphocytes Absolute Auto 2000 /uL (1100-4500); Lymphocytes Percent Auto 39.3 % (25-40); Mean Corpuscular HGB Conc 33.7 % (30-36); Mean Corpuscular Hemoglobin 30.1 PG (26-34); Mean Corpuscular Volume 89.3 fL (80-100); Monocytes Absolute Auto 500 /uL (0-900); Neutrophils Absolute Auto 2400 /uL (1500-7000); Neutrophils Percent Auto 47.4 % (50-75); Platelet Count 260 X10^3/uL (150-400); Red Blood Cell Count 4.46 X10^6/uL (4.0-5.2); Red Cell Distribution Width 12.9 % (11.6-14.8); White Blood Cell Count 5.1 X10^3/uL (4.5-11.0)
[2024-06-03 19:39] LABS: Alanine Aminotransferase 26 IU/L (<35); Albumin 3.8 g/dL (3.5-5.0); Albumin Globulin Ratio 1.2 (1.0-2.8); Alkaline Phosphatase 59 U/L (38-126); Aspartate Aminotransferase 29 IU/L (14-36); BUN Creatinine Ratio 17.5 (6-22); Bilirubin Total 0.5 mg/dL (0.2-1.3); Blood Urea Nitrogen 11 mg/dL (7-17); Calcium 9.7 mg/dL (8.4-10.2); Carbon Dioxide 28 mmol/L (22-32); Chloride 107 mmol/L (98-107); Cholesterol 231 mg/dL (140-199); Estimated Glomerular Filt Rate > 60 mL/min (>60); Globulin 3.3 g/dL (1.7-4.1); Glucose 100 mg/dL (80-110); HDL Cholesterol 82 mg/dL (40-60); HEMOLYSIS < 15 (0-50); LDL Cholesterol Calculated 133 mg/dL (<100); Potassium 4.3 mmol/L (3.4-5.1); Sodium 137 mmol/L (137-145); Total Protein 7.1 g/dL (6.3-8.2); Triglycerides 79 mg/dL (35-150)
[2024-06-03 20:07] LABS: Thyroid Stimulating Hormone 2.24 uIU/mL (0.47-4.68)
[2024-06-03 20:12] LABS: Ferritin 79 ng/mL (11-264)
== END ==
PROVIDERS: PCP Family Medicine; Visit Provider Family Medicine
DX: R74.01 Elevation of levels of liver transaminase levels (principal); I10 Essential (primary) hypertension; R25.2 Cramp and spasm; E78.2 Mixed hyperlipidemia; Z86.2 Personal history of diseases of the blood and blood-forming organs and certain disorders involving the immune mechanism
CPT/HCPCS: 80053; 80061; 82728; 84443; 85025

== ENCOUNTER → 2024-06-06 08:39 | Outpatient (CLI) | payer MEDICARE, SELFPAY ==
--- NOTE | 2024-06-06 08:41 | DI.RAD.S_ITS ---
PROCEDURE: XR DEXA AXIAL SKELETON INDICATIONS: screening COMPARISON: None. FINDINGS: Lumbar Spine: Bone mineral density 1.3 g/cm2, T score 2.3. Left Hip: Bone mineral density 1.14 g/cm2, T score 1.6. Left Femoral Neck: Bone mineral density 0.889 g/cm2, T score 0.4. Right Hip: Bone mineral density 1.091 g/cm2, T score 1.2. Right Femoral Neck: Bone mineral density 0.851 g/cm2, T score 0. Fracture Risk Calculation (when applicable): 10-year fracture risk of a major osteoporotic fracture 11% percent and of a hip fracture 0.4% percent. (T score greater or equal to -1.0 to: NORMAL) (T score from -1.1 to -2.4: OSTEOPENIA) (T score less than or equal to -2.5: OSTEOPOROSIS) IMPRESSION: Minimal osteopenia in the lumbar spine as well as right hip. Follow-up guidelines as follows: Osteoporosis: Consider a repeat DEXA and Vertebral Fracture Assessment (VFA) exam in 2 years or sooner if medically necessary, to reassess this patient's status. Osteopenia: Consider a repeat DEXA in 2-3 years to reassess this patient's status, or if there is a new clinical indication. Normal: Consider a repeat DEXA in 5 years or sooner, or if there is a new clinical indication. All treatment decisions require clinical judgment and consideration of individual patient factors, including patient preferences, comorbidities, previous drug use, risk factors not captured in the FRAX model (e.g., frailty, falls, vitamin D deficiency, increased bone turnover, interval significant decline in bone density ) and possible under- or over-estimation of fracture risk by FRAX. In addition, the NOF Guide recommends that FDA-approved medical therapies be considered in postmenopausal women and men age >= 50 years with a: * Hip or vertebral (clinical or morphometric) fracture * T-score of <=-2.5 at the spine or hip * Ten-year fracture probability by FRAX of >= 3% for hip fracture or >=20% for major osteoporotic fracture. People with diagnosed cases of osteoporosis or at high risk for fracture should have regular bone mineral density tests. For patients eligible for Medicare, routine testing is allowed once every 2 years. The testing frequency can be increased to one year for patients who have rapidly progressing disease, those who are receiving or discontinuing medical therapy to restore bone mass, or have additional risk factors. Dictated by: Nila Noriega M.D. on 06/06/2024 at 16:40 Approved by: Nila Noriega M.D. on 06/06/2024 at 16:42
--- NOTE | 2024-06-06 08:41 | DI.MG.S_ITS ---
BILATERAL DIGITAL SCREENING MAMMOGRAM 3D/2D WITH CAD: 06/06/2024 CLINICAL: Baseline exam. Routine screening. No prior exams were available for comparison. There are scattered areas of fibroglandular density (category b / 25%-50% glandular tissue). Current study was also evaluated with a Computer Aided Detection (CAD) system. No significant masses, calcifications, or other findings are seen in either breast. IMPRESSION: NEGATIVE There is no mammographic evidence of malignancy. A 1 year screening mammogram is recommended. Based on the Tyrer Cuzick model (a risk assessment model) the patient's lifetime risk is 5.7% and her 10 year risk is 3.2%. According to the ACR, ACS, and NCCN guidelines, an annual breast MRI exam along with mammogram is recommended if the patient's lifetime risk is 20% or greater. This exam was interpreted at Station ID: [id number]. NOTE: For mammograms, a report in lay terms will be sent to the patient. Approximately 15% of breast malignancies will not be visualized mammographically. In the management of a palpable breast mass, a negative mammogram must not discourage biopsy of a clinically suspicious lesion. Electronically Signed By: Dario vásquez/castro:06/07/2024 08:59:50 letter sent: Normal Exam ACR BI-RADS Category 1: Negative
== END ==
LOC: MAMMO 08:41
PROVIDERS: PCP Family Medicine; Referring Provider Family Medicine; Visit Provider Family Medicine
DX: Z12.31 Encounter for screening mammogram for malignant neoplasm of breast (principal); Z78.0 Asymptomatic menopausal state
CPT/HCPCS: 77063; 77067; 77080